=== PATIENT | female | born 1995 | race Caucasian/White ===

== ENCOUNTER 2018-06-16 16:54 | Emergency (ER) | payer SELFPAY ==
[2018-06-16 19:10] LABS: ABS Basophils 0 10^3/ul (0-0.2); ABS Eosinophils 0 10^3/ul (0-0.6); ABS Lymphocytes 1.8 10^3/ul (1.0-4.8); ABS Monocytes 0.5 10^3/ul (0-0.8); ABS Neutrophils 10.6 10^3/ul (1.5-7.7); ABS Nucleated RBC 0 10^3/ul; Eosinophil % 0.1 %; Hematocrit 41 % (35-47); Hemoglobin 14.2 g/dl (12.0-16.0); Lymphocyte % 14.1 %; Mean Corpuscular HGB Conc 34 g/dl (31-36); Mean Corpuscular Hemoglobin 30 pg (27-31); Mean Corpuscular Volume 86 fL (80-97); Mean Platelet Volume 7.2 fL (7.4-10.4); Nucleated Red Blood Cells % 0; Platelet Count 315 10^3/ul (150-450); Red Blood Count 4.81 10^6/ul (4.00-5.40); Red Cell Distribution Width 13 % (10.5-15)
[2018-06-16 19:16] LABS: INR 0.96 (0.77-1.02)
[2018-06-16 19:33] LABS: ALT 5 U/L (7-52); AST 19 U/L (13-39); Albumin 4.9 g/dL (3.2-5.2); Albumin/Globulin Ratio 1.8 (1-3); Alkaline Phosphatase 46 U/L (34-104); Anion Gap 8 mmol/L (2-11); BUN/Creatinine Ratio 14.5 (8-20); Blood Urea Nitrogen 12 mg/dL (6-24); CO2 Carbon Dioxide 27 mmol/L (22-32); Calcium 9.7 mg/dL (8.6-10.3); Chloride 104 mmol/L (101-111); EGFR African American 103.1 (>60); EGFR Non-African American 85.2 (>60); Globulin 2.7 g/dL (2-4); Glucose 99 mg/dL (70-100); Magnesium 2.2 mg/dL (1.9-2.7); Potassium 3.8 mmol/L (3.5-5.0); Sodium 139 mmol/L (135-145); Total Protein 7.6 g/dL (6.4-8.9)
[2018-06-16 19:39] LABS: HCG Pregnancy < 0.60 mIU/mL
--- NOTE | 2018-06-16 20:54 | ED ---
Neurological HPI - HPI Summary HPI Summary: Patient is a 22 y/o F presenting to ED via EMS with complaints of possible witness seizure, dizziness. She states that she was at work today in her office when she suddenly experienced ear ringing, dizziness. Patient states that she subsequently "blacked out". She reports that her co-worker found her, who told her that it appeared that she had a seizure. Co-worker had told the patient that she was "stiff like a board" and afterwards she was not responding for twenty minutes. She denies Hx of seizures, FMHx of seizures. Patient does report that she had a similar spell of dizziness previously but no "blacking out " PMHx of heart murmur, no FMHx of cardiac disease. Patient denies chest pain, SOB, nausea, vomiting, cough and any pain. She states that she is currently fatigued. On triage, pain is denied, nothing is noted to aggravate/alleviate Sx. Home medications and allergies are reviewed. - History of Current Complaint Chief Complaint: EDSeizure Stated Complaint: SEIZURE Time Seen by Provider: 06/16/18 20:08 Hx Obtained From: Patient Onset/Duration: Sudden Onset, Started hours ago, Resolved Timing: Intermittent Episodes Lasting: Current Severity: None - pain denied Number of Seizures: 1 Pain Intensity: 0 Pain Scale Used: 0-10 Numeric - 0/10 Character: Dizzy, Other: - possible witnessed seizure Syncope Context: Witnessed Frequency: Episodes x___ - 1 Aggravating: Nothing Alleviating: Nothing Associated Signs and Symptoms: Positive: Tinnitus, Dizziness, Seizure - possible witnessed - Allergy/Home Medications Allergies/Adverse Reactions: Allergies Allergy/AdvReac Type Severity Reaction Status Date / Time No Known Allergies Allergy Verified 06/16/18 17:27 PMH/Surg Hx/FS Hx/Imm Hx Sensory History: Denies: Hx Legally Blind, Hx Deafness Opthamlomology History: Denies: Hx Legally Blind EENT History: Denies: Hx Deafness Infectious Disease History: No Infectious Disease History: Denies: Traveled Outside the [place] in Last 30 Days - Family History Known Family History: Negative: Cardiac Disease, Seizure Disorder - Social History Alcohol Use: Weekly Alcohol Amount: once weekly Substance Use Type: Reports: None Smoking Status (MU): Never Smoked Tobacco Review of Systems Positive: Fatigue ENT: Other - POSITIVE - EAR RINGING Negative: Chest Pain Negative: Shortness Of Breath, Cough Negative: Vomiting, Nausea Neurological: Other - POSITIVE - DIZZINESS, POSSIBLE WITNESSED SEIZURE All Other Systems Reviewed And Are Negative: Yes Physical Exam - Summary Physical Exam Summary: GENERAL: Patient is a well-developed and nourished female who is lying comfortable in the stretcher. Patient is not in any acute respiratory distress. HEAD AND FACE: Normocephalic EYES: PERRLA, EOMI x 2. EARS: Hearing grossly intact. MOUTH: Oropharynx within normal limits. NECK: Supple, trachea is midline, no adenopathy, no JVD, no carotid bruit. CHEST: Symmetric, no tenderness at palpation LUNGS: Clear to auscultation bilaterally. No wheezing or crackles. CVS: Regular rate and rhythm, S1 and S2 present, no murmurs or gallops appreciated. ABDOMEN: Soft, non-tender. Bowel sounds are normal. No abdominal abnormal pulsations. EXTREMITIES: Full ROM in all major joints, no edema, no cyanosis or clubbing. NEURO: Alert and oriented x 3. No acute neurological deficits. Speech is normal and follows commands. GCS 15. Triage Information Reviewed: Yes Vital Signs On Initial Exam: Initial Vitals Temp Pulse Resp BP Pulse Ox 98.8 F 103 17 127/79 100 06/16/18 17:22 06/16/18 17:22 06/16/18 17:22 06/16/18 17:22 06/16/18 17:22 Vital Signs Reviewed: Yes - Nnia Coma Scale Best Eye Response: 4 - Spontaneous Best Motor Response: 6 - Obeys Commands Best Verbal Response: 5 - Oriented Coma Scale Total: 15 Diagnostics - Vital Signs Vital Signs Temp Pulse Resp BP Pulse Ox 06/16/18 20:13 94 150/89 100 06/16/18 19:20 98.0 F 95 20 133/82 100 06/16/18 17:22 98.8 F 103 17 127/79 100 - Laboratory Lab Results: Lab Results 06/16/18 06/16/18 06/16/18 Range/Units 18:58 18:58 18:58 WBC 13.0 H (3.5-10.8) 10^3/ul RBC 4.81 (4.00-5.40) 10^6/ul Hgb 14.2 (12.0-16.0) g/dl Hct 41 (35-47) % MCV 86 (80-97) fL MCH 30 (27-31) pg MCHC 34 (31-36) g/dl RDW 13 (10.5-15) % Plt Count 315 (150-450) 10^3/ul MPV 7.2 L (7.4-10.4) fL Neut % (Auto) 81.3 % Lymph % (Auto) 14.1 % [place] % (Auto) 4.2 % Eos % (Auto) 0.1 % Baso % (Auto) 0.3 % Absolute Neuts (auto) 10.6 H (1.5-7.7) 10^3/ul Absolute Lymphs (auto) 1.8 (1.0-4.8) 10^3/ul Absolute Monos (auto) 0.5 (0-0.8) 10^3/ul Absolute Eos (auto) 0 (0-0.6) 10^3/ul Absolute Basos (auto) 0 (0-0.2) 10^3/ul Absolute Nucleated RBC 0 10^3/ul Nucleated RBC % 0 INR (Anticoag Therapy) 0.96 (0.77-1.02) Sodium 139 (135-145) mmol/L Potassium 3.8 (3.5-5.0) mmol/L Chloride 104 (101-111) mmol/L Carbon Dioxide 27 (22-32) mmol/L Anion Gap 8 (2-11) mmol/L BUN 12 (6-24) mg/dL Creatinine 0.83 (0.51-0.95) mg/dL Est GFR ( Amer) 103.1 (>60) Est GFR (Non-Af Amer) 85.2 (>60) BUN/Creatinine Ratio 14.5 (8-20) Glucose 99 (70-100) mg/dL Lactic Acid (0.5-2.0) mmol/L Calcium 9.7 (8.6-10.3) mg/dL Magnesium 2.2 (1.9-2.7) mg/dL Total Bilirubin 0.70 (0.2-1.0) mg/dL AST 19 (13-39) U/L ALT 5 L (7-52) U/L Alkaline Phosphatase 46 (34-104) U/L Total Protein 7.6 (6.4-8.9) g/dL Albumin 4.9 (3.2-5.2) g/dL Globulin 2.7 (2-4) g/dL Albumin/Globulin Ratio 1.8 (1-3) Beta HCG, Quant < 0.60 mIU/mL 06/16/18 Range/Units 18:58 WBC (3.5-10.8) 10^3/ul RBC (4.00-5.40) 10^6/ul Hgb (12.0-16.0) g/dl Hct (35-47) % MCV (80-97) fL MCH (27-31) pg MCHC (31-36) g/dl RDW (10.5-15) % Plt Count (150-450) 10^3/ul MPV (7.4-10.4) fL Neut % (Auto) % Lymph % (Auto) % [place] % (Auto) % Eos % (Auto) % Baso % (Auto) % Absolute Neuts (auto) (1.5-7.7) 10^3/ul Absolute Lymphs (auto) (1.0-4.8) 10^3/ul Absolute Monos (auto) (0-0.8) 10^3/ul Absolute Eos (auto) (0-0.6) 10^3/ul Absolute Basos (auto) (0-0.2) 10^3/ul Absolute Nucleated RBC 10^3/ul Nucleated RBC % INR (Anticoag Therapy) (0.77-1.02) Sodium (135-145) mmol/L Potassium (3.5-5.0) mmol/L Chloride (101-111) mmol/L Carbon Dioxide (22-32) mmol/L Anion Gap (2-11) mmol/L BUN (6-24) mg/dL Creatinine (0.51-0.95) mg/dL Est GFR ( Amer) (>60) Est GFR (Non-Af Amer) (>60) BUN/Creatinine Ratio (8-20) Glucose (70-100) mg/dL Lactic Acid 0.9 (0.5-2.0) mmol/L Calcium (8.6-10.3) mg/dL Magnesium (1.9-2.7) mg/dL Total Bilirubin (0.2-1.0) mg/dL AST (13-39) U/L ALT (7-52) U/L Alkaline Phosphatase (34-104) U/L Total Protein (6.4-8.9) g/dL Albumin (3.2-5.2) g/dL Globulin (2-4) g/dL Albumin/Globulin Ratio (1-3) Beta HCG, Quant mIU/mL Result Diagrams: 06/16/18 18:58 06/16/18 18:58 Lab Statement: Any lab studies that have been ordered have been reviewed, and results considered in the medical decision making process. - CT brain ct CT Interpretation Completed By: Radiologist Summary of CT Findings: IMPRESSION: No acute intracranial pathology. THIS REPORT WAS REVIEWED BY ED PHYSICIAN. - EKG 1758 Cardiac Rate: NL - rate of 97 BPM EKG Rhythm: Sinus Rhythm Summary of EKG Findings: EKG showed sinus rhythm with rate of 97 BPM, normal intervals, no ischemic changes. Re-Evaluation - Re-Evaluation First Eval Re-Evaluation Time: 21:50 Comment: Discussed results with patient and patient reports feeling better. Patient is hemodynamically stable and safe for discharge. Strict return precautions given and patient will otherwise follow up with PCP and neurologist. Course/Dx - Course Course Of Treatment: Patient is a 22 y/o F presenting to ED via EMS with complaints of possible witness seizure, dizziness. She states that she was at work today in her office when she suddenly experienced ear ringing, dizziness. Patient states that she subsequently "blacked out". She reports that her co- worker found her, who told her that it appeared that she had a seizure. Co- worker had told the patient that she was "stiff like a board" and afterwards she was not responding for twenty minutes. She denies Hx of seizures, FMHx of seizures. Patient does report that she had a similar spell of dizziness previously but no "blacking out" PMHx of heart murmur, no FMHx of cardiac disease. Patient denies chest pain, SOB, nausea, vomiting, cough and any pain. She states that she is currently fatigued. Physical exam is unremarkable, normal neuro, GCS 15. EKG showed sinus rhythm with rate of 97 BPM, normal intervals, no ischemic changes. BRAIN CT IMPRESSION: No acute intracranial pathology. Labs showed WBC 13, MPV 7.2, absolute neuts 10.6, ALT 5, beta HCG < 0.6. UA showed 1+ ketones, 1+ blood, 2+ leukocyte esterase, 3+ WBC, 1+ RBC, squamous epith cells present, 2+ bacteria, no glucose. During ED course, patient was given Cipro 500 mg PO ONCE. Discussed results with patient and patient reports feeling better. Patient is hemodynamically stable and safe for discharge. Strict return precautions given and patient will otherwise follow up with PCP and neurologist. - Diagnoses Provider Diagnoses: UTI (urinary tract infection), Seizure-like activity Discharge - Sign-Out/Discharge Documenting (check all that apply): Patient Departure - discharge Patient Received Moderate/Deep Sedation with Procedure: No - NO PROCEDURES DONE - Discharge Plan Condition: Stable Disposition: HOME Prescriptions: Ciprofloxacin HCl [Cipro] 500 mg PO BID #14 tablet Patient Education Materials: Urinary Tract Infection in Women (ED), Syncope (ED ), New-Onset Seizure in Adults (ED) Referrals: [facility] [Outside] - 3 Days Jose Alberto Mckeon MD [Medical Doctor] - 3 Days Additional Instructions: Follow up with your primary care physician and neurologist in 1-3 days. RETURN TO THE EMERGENCY DEPARTMENT FOR CHANGING OR WORSENING SYMPTOMS. - Billing Disposition and Condition Condition: STABLE Disposition: Home - Attestation Statements Document Initiated by Scribe: Yes Documenting Scribe: YAN HARRINGTON Provider For Whom Albertina is Documenting (Include Credential): TOMASA MACIAS MD Scribe Attestation: YAN Graham , scribed for TOMASA MACIAS MD on 06/16/18 at 2150. Scribe Documentation Reviewed: Yes Provider Attestation: The documentation as recorded by the YAN ramirez accurately reflects the service I personally performed and the decisions made by me, TOMASA MACIAS MD Status of Scribe Document: Viewed
[2018-06-16 21:11] LABS: Urine Appearance Cloudy; Urine Bacteria 2+ (Absent); Urine Bilirubin Negative (Negative); Urine Blood 1+ (Negative); Urine Color Yellow; Urine Glucose Negative (Negative); Urine Ketones 1+ (Negative); Urine Nitrite Negative (Negative); Urine Protein Negative (Negative); Urine Red Blood Cell 1+(3-5/hpf) (Absent); Urine Specific Gravity 1.011 (1.010-1.030); Urine Squamous Epithelial Cell Present (Absent); Urine Urobilinogen Negative (Negative); Urine White Blood Cell 3+(>20/hpf) (Absent)
[2018-06-16] MEDS ORDERED: Ciprofloxacin TAB* 250 MG PO ONE (21:15)
[2018-06-16 23:11] VITALS: BP 133/83
== END 2018-06-16 23:11 | disposition home or self-care (01) ==
LOC: ED 16:54
DX: N39.0 Urinary tract infection, site not specified (principal); R42 Dizziness and giddiness
CPT/HCPCS: 36415; 70450; 80053; 81003; 81015; 83605; 83735; 84702; 85025; 85610; 87077; 87086; 87186; 93005; 99283; A9270-GY